=== PATIENT | male | born 1955 | race Hispanic/Latino ===

== ENCOUNTER 2023-01-17 09:50 | Emergency (ER) | payer MEDICARE ==
[~2023-01-17] VITALS: Ht 170.2 cm; Wt 93.0 kg
[2023-01-17] MEDS ORDERED: KETOROLAC TROMETHAMINE 30 MG/ML VIAL IM ONE (10:15)
[2023-01-17] MEDS ORDERED: DEXAMETHASONE SOD PHOS 10 MG/1 ML VIAL IM ONE (10:15)
[2023-01-17] MEDS ORDERED: HYDROCODONE/APAP 5MG-325MG TAB PO ONE (10:15)
[2023-01-17] MEDS ORDERED: METHOCARBAMOL500 MG PO (10:17)
[2023-01-17] MEDS ORDERED: CELEBREX100 MG PO (10:17)
[2023-01-17 10:51] VITALS: BP 148/85
== END 2023-01-17 10:53 | disposition home or self-care (01) ==
LOC: ER 10:08
DX: M25.551 Pain in right hip (principal); I10 Essential (primary) hypertension; E11.9 Type 2 diabetes mellitus without complications; E78.5 Hyperlipidemia, unspecified; Z96.652 Presence of left artificial knee joint
CPT/HCPCS: 99282; J1100; J1885

== ENCOUNTER 2023-02-13 14:33 | Observation (INO) | payer MEDICARE ==
[~2023-02-13] VITALS: Ht 170.2 cm; Wt 99.8 kg
[~2023-02-13 14:33] MED LIST: CELEBREX100 MG PO; METHOCARBAMOL500 MG PO
[2023-02-13] MEDS ORDERED: FENTANYL CITRATE/PF 100MCG/2 ML INJ IV STA ×2 (14:46→18:24)
[2023-02-13 14:56] LABS: BASOPHILS # (AUTO) 0.1 (0.0-0.1); EOSINOPHILS # (AUTO) 0.3 (0.0-0.4); EOSINOPHILS % 2.3 % (0.0-6.0); LYMPHOCYTES # (AUTO) 2.3 (1.0-3.2); LYMPHOCYTES % 17.4 % (18.0-39.1); MEAN CORPUSCULAR HEMOGLOBIN 29.7 pg (28-32); MEAN CORPUSCULAR HGB CONC 33.3 g/dL (31-35); MEAN CORPUSCULAR VOLUME 89.1 fL (81-99); MONOCYTES # (AUTO) 0.7 (0.2-0.8); MONOCYTES % 5.7 % (4.4-11.3); NEUTROPHILS # (AUTO) 8.5 (2.1-6.9); NEUTROPHILS % 64.5 % (38.7-80.0); PLATELET COUNT 254 x10e3/uL (140-360); RED BLOOD COUNT 5.39 x10e6/uL (4.3-5.7); RED CELL DISTRIBUTION WIDTH 12.8 % (11.7-14.4)
[2023-02-13] MEDS ORDERED: NITROGLYCERIN 2% OINT 1 GM PKT TOP ONE (15:00)
[2023-02-13] MEDS ORDERED: ASPIRIN 81 MG CHEW TAB PO ONE (15:00)
[2023-02-13 15:13] LABS: ALANINE AMINOTRANSFERASE 9 IU/L (0-55); ALBUMIN 3.7 g/dL (3.5-5.0); ALKALINE PHOSPHATASE 99 IU/L (40-150); ANION GAP 14.4 mmol/L (8-16); BLOOD UREA NITROGEN 19 mg/dL (7-26); BUN/CREATININE RATIO 16 (6-25); CALCIUM 9.5 mg/dL (8.4-10.2); CARBON DIOXIDE 24 mmol/L (22-29); CHLORIDE 108 mmol/L (98-107); CREATINE KINASE 49 IU/L (30-200); CREATININE, SERUM 1.21 mg/dL (0.72-1.25); GLUCOSE 117 mg/dL (74-118); POTASSIUM 4.4 mmol/L (3.5-5.1); SODIUM 142 mmol/L (136-145)
[2023-02-13 16:09] LABS: EOSINOPHILS % (MANUAL) 1 % (0-7); LYMPHOCYTES % (MANUAL) 25 % (19-48); MONOCYTES % (MANUAL) 10 % (3.4-9.0); NEUTROPHILS % (MANUAL) 63 % (40-74); PLATELET ESTIMATE ADEQUATE; PLATELET MORPHOLOGY COMMENT NORMAL; RBC MORPHOLOGY COMMENT NORMAL
[2023-02-13] MEDS: NITROGLYCERIN 2% OINT 1 GM PKT TOP SCH ×2 (18:00→23:33)
[2023-02-13 20:03] VITALS: BP 131/77
[2023-02-13 20:25] LABS: CREATINE KINASE 38 IU/L (30-200)
[2023-02-13] MEDS ORDERED: SIMVASTATIN40 MG PO (20:40)
[2023-02-13] MEDS ORDERED: GABAPENTIN300 MG PO (20:40)
[2023-02-13] MEDS ORDERED: VALSARTAN160 MG PO (20:40)
[2023-02-13] MEDS ORDERED: NOVOLOG100 UNITS1 IJ (20:44)
[2023-02-13] MEDS ORDERED: OZEMPIC0.25 MG/0. SC (20:46)
[2023-02-13] MEDS: ONDANSETRON HCL INJ 2MG/ML 2ML 2 MG/ML VIAL IV PRN (21:14)
[2023-02-13] MEDS: Morphine 4mg INJECTION 4 MG/ML INJ IV PRN (21:14)
[2023-02-14] VITALS (7 sets, daily range): BP systolic 113–129; BP diastolic 64–75
[2023-02-14] MEDS: ONDANSETRON HCL INJ 2MG/ML 2ML 2 MG/ML VIAL IV PRN ×3 (03:23→17:42)
[2023-02-14] MEDS: Morphine 4mg INJECTION 4 MG/ML INJ IV PRN ×3 (03:23→17:42)
[2023-02-14 05:54] LABS: CREATINE KINASE 38 IU/L (30-200)
[2023-02-14] MEDS: NITROGLYCERIN 2% OINT 1 GM PKT TOP SCH ×3 (06:12→17:37)
[2023-02-14 06:28] LABS: CHOL/HDL RATIO 4.5 (3.9-4.7)
[2023-02-14] MEDS ORDERED: METHOCARBAMOL 750 MG TAB PO PRN (07:00)
[2023-02-14] MEDS: INSULIN LISPRO 100 UNIT/1 ML 3ML VIAL SQ SCH ×3 (07:30→16:30)
[2023-02-14] MEDS ORDERED: ASPIRIN 325 MG TAB EC PO SCH (09:00)
[2023-02-14] MEDS ORDERED: VALSARTAN 160 MG TAB PO SCH (09:00)
[2023-02-14] MEDS ORDERED: POLYETHYLENE GLYCOL 3350 17 GM PACK PO PRN (09:15)
[2023-02-14] MEDS: GABAPENTIN 300 MG CAP PO SCH ×2 (09:41→17:36)
[2023-02-14] MEDS ORDERED: SIMVASTATIN 40 MG TAB PO SCH (13:00)
[2023-02-14 15:09] LABS: CREATINE KINASE 51 IU/L (30-200)
[2023-02-14] MEDS ORDERED: DOCUSATE SODIUM 100 MG CAP PO SCH (17:00)
== END 2023-02-14 19:00 | disposition home or self-care (01) ==
LOC: ER 14:39 → ERHOLD 17:13 → MED/SURG 20:22
PROVIDERS: ADMIT Family Medicine; ATTEND Family Medicine
DX: R07.2 Precordial pain (principal); I10 Essential (primary) hypertension; E78.5 Hyperlipidemia, unspecified; E11.9 Type 2 diabetes mellitus without complications; M54.9 Dorsalgia, unspecified; L40.50 Arthropathic psoriasis, unspecified; Z20.822 Contact with and (suspected) exposure to COVID-19; Z79.4 Long term (current) use of insulin; Z79.85 Long-term (current) use of injectable non-insulin antidiabetic drugs; Z79.899 Other long term (current) drug therapy
CPT/HCPCS: 36415 ×2; 71045; 80053; 80061; 82550 ×2; 82553 ×2; 82948 ×2; 83880; 84484 ×2; 85025; 85379; 93005; 93306; 94799 ×2; 99284; G0378 ×2; J2270 ×2; J2405 ×2; J3010; U0002; 80048